=== PATIENT | female | born 1985 | race Caucasian/White ===

== ENCOUNTER 2016-12-19 11:51 | Emergency (ER) | payer OTHER ==
[2016-12-19 12:17] VITALS: BMI 23.8
[2016-12-19 12:19] VITALS: TEMP 99.4
[2016-12-19] MEDS ORDERED: Penicillin G Benzathine 1.2 Mill Unit/2 ml Syr IM ONE ×2 (12:47→13:22)
--- NOTE | 2016-12-19 12:55 | C.PDOC ---
History Of Present Illness 31 yr old female presents to the ER with complaints of fever, chill, body aches , sore throat and no appetite for the past 2 days. Patient denies chest pain, SOB, nausea, vomiting, abdominal pain, headache, weakness or numbness. Time Seen by Provider: 12/19/16 12:20 Chief Complaint (Nursing): ENT Problem History Per: Patient History/Exam Limitations: None Onset/Duration Of Symptoms: Days (2) Current Symptoms Are (Timing): Still Present Past Medical History Reviewed: Historical Data, Nursing Documentation, Vital Signs Vital Signs: Last Vital Signs Temp 99.4 F 12/19/16 13:37 Pulse 73 12/19/16 13:37 Resp 18 12/19/16 13:37 BP 98/61 L 12/19/16 13:37 Pulse Ox 98 12/19/16 13:37 - Medical History PMH: No Chronic Diseases Surgical History: Family History: States: No Known Family Hx - Social History Hx Tobacco Use: No Hx Alcohol Use: No Hx Substance Use: No Review Of Systems Except As Marked, All Systems Reviewed And Found Negative. Constitutional: Positive for: Fever (Subjective ), Chills, Other ((+) Bodyaches ) ENT: Positive for: Throat Pain (Sore throat ) Cardiovascular: Negative for: Chest Pain Respiratory: Negative for: Shortness of Breath Gastrointestinal: Negative for: Nausea, Vomiting, Abdominal Pain Neurological: Negative for: Weakness, Numbness Physical Exam - Physical Exam Appears: Well, Non-toxic, No Acute Distress Skin: Warm, Dry, No Rash Head: Atraumatic, Normacephalic Oral Mucosa: Moist Throat: Erythema, Exudate, Other ((+) Enlarged tonsils. Tender cervical nodes. ) Neck: Normal, Normal ROM, Supple Chest: Symmetrical, No Tenderness Cardiovascular: Rhythm Regular, No Murmur Respiratory: Normal Breath Sounds, No Rales, No Rhonchi, No Stridor, No Wheezing Gastrointestinal/Abdominal: Normal Exam, Soft, No Tenderness, No Guarding, No Rebound Extremity: Normal ROM, No Swelling Neurological/Psych: Oriented x3, Normal Speech, Normal Motor ED Course And Treatment O2 Sat by Pulse Oximetry: 100 Progress Note: Pt requested IM med Medical Decision Making Medical Decision Making: PLAN: Pt requested a shot not pills * Bicillin IM ordered dc home Disposition Counseled Patient/Family Regarding: Diagnosis, Need For Followup - Disposition Referrals: [facility] [Outside] Disposition: HOME/ ROUTINE Disposition Time: 13:29 Condition: GOOD Additional Instructions: Motrin or tylenol for pain / fever Instructions: Tonsillitis (ED) Forms: Work Excuse Print Language: UKRAINIAN - Clinical Impression Clinical Impression: Acute pharyngitis - Scribe Statement The provider has reviewed the documentation as recorded by the Sandy Staley Provider Attestation: All medical record entries made by the Sandy were at my direction and personally dictated by me. I have reviewed the chart and agree that the record accurately reflects my personal performance of the history, physical exam, medical decision making, and the department course for this patient. I have also personally directed, reviewed, and agree with the discharge instructions and disposition.
[2016-12-19 13:38] VITALS: BP 98/61; PULSE 73; RESP 18
[2016-12-22 16:03] VITALS: O2SAT 100
== END 2016-12-19 13:44 | disposition home or self-care (01) ==
LOC: C.ER 11:51
DX: J02.9 Acute pharyngitis, unspecified (principal)
CPT/HCPCS: 96372; 99283; J0561

== ENCOUNTER 2018-07-21 09:31 | Emergency (ER) | payer OTHER ==
[2018-07-21 09:31] VITALS: BMI 19.2
[2018-07-21 09:37] VITALS: BP 103/69; PULSE 62; RESP 16; TEMP 98.3; O2SAT 100
--- NOTE | 2018-07-21 11:08 | C.PDOC ---
History Of Present Illness 32 y/o female, otherwise well, presents to the ED complaining of pain and swelling to the right 2nd finger, worse over the past 3 days. States she accidentally caught the finger in a door 3 weeks ago and had a subungual hematoma. Patient has noticed some discharge from the distal finger. She denies any fever, chills, or increased warmth/redness to the site. Patient also complains of occasional headache. Time Seen by Provider: 07/21/18 09:54 Chief Complaint (Nursing): Upper Extremity Problem/Injury History Per: Patient History/Exam Limitations: no limitations Onset/Duration Of Symptoms: Days Current Symptoms Are (Timing): Still Present Quality: "Pain" Past Medical History Reviewed: Historical Data, Nursing Documentation, Vital Signs Vital Signs: Last Vital Signs Temp 98.3 F 07/21/18 09:35 Pulse 62 07/21/18 09:35 Resp 16 07/21/18 09:35 BP 103/69 07/21/18 09:35 Pulse Ox 100 07/21/18 09:35 Surgical History: Family History: States: No Known Family Hx - Social History Hx Tobacco Use: No Hx Alcohol Use: No Hx Substance Use: No - Immunization History Hx Tetanus Toxoid Vaccination: No Hx Influenza Vaccination: No Hx Pneumococcal Vaccination: No Review Of Systems Constitutional: Negative for: Fever, Chills Musculoskeletal: Positive for: Hand Pain (right finger pain and swelling) Skin: Negative for: Rash Neurological: Negative for: Weakness, Numbness Physical Exam - Physical Exam Appears: Well, Non-toxic, No Acute Distress Skin: Warm, Dry, Other (Right 2nd digit appears swollen, tender with a few herpetic lesions at the distal phalanx; consistent with virgilio) Head: Atraumatic, Normacephalic Eye(s): bilateral: Normal Inspection Chest: Symmetrical Respiratory: No Accessory Muscle Use, Other (speaking in full sentences) Extremity: Normal ROM, Capillary Refill (less than 2 sec) Pulses: Left Radial: Normal, Right Radial: Normal Neurological/Psych: Oriented x3, Normal Speech ED Course And Treatment O2 Sat by Pulse Oximetry: 100 (RA) Pulse Ox Interpretation: Normal Medical Decision Making Medical Decision Making: Impression: Virgilio, right 2nd digit Plan: Counseled patient regarding diagnosis and treatment plan. Patient will be discharged home, given instructions for follow up. Disposition Counseled Patient/Family Regarding: Diagnosis, Need For Followup, Rx Given - Disposition Referrals: [facility] at [facility] [Outside] Disposition: HOME/ ROUTINE Disposition Time: 11:48 Condition: STABLE Prescriptions: Acyclovir/Hydrocortisone [Xerese 5%-1% Cream] 1 cre TP TID #1 tube Cephalexin [Keflex] 500 mg PO TID #40 capsule Ibuprofen [Motrin] 600 mg PO TID #15 tab Forms: [facility] (Kittitian), Gen Discharge Inst Kittitian, Work Excuse - POA Present On Arrival: None - Clinical Impression Clinical Impression: Herpetic virgilio - Rubenibe Statement The provider has reviewed the documentation as recorded by the Sandy Kothari Provider Attestation: All medical record entries made by the Sandy were at my direction and personally dictated by me. I have reviewed the chart and agree that the record accurately reflects my personal performance of the history, physical exam, medical decision making, and the department course for this patient. I have also personally directed, reviewed, and agree with the discharge instructions and disposition.
[2018-07-21] MEDS ORDERED: Lidocaine 2% Inj (20ml) INFIL ONE (11:37)
== END 2018-07-21 12:02 | disposition home or self-care (01) ==
LOC: C.ER 09:31
DX: B00.89 Other herpesviral infection (principal)

== ENCOUNTER 2018-11-23 14:50 | Emergency (ER) | payer SELFPAY ==
[2018-11-23 16:03] VITALS: BMI 24.4
[2018-11-23 16:07] VITALS: BP 122/77; PULSE 75; TEMP 98.6; O2SAT 99
--- NOTE | 2018-11-23 18:04 | C.PDOC ---
History Of Present Illness 32 year old female presents to the ED for evaluation of generalized body aches associated with sore throat, headache and nasal congestion for one month. This morning, patient states that her eyes felt like they were shut due to crustiness this morning. She denies fever, chills. Time Seen by Provider: 11/23/18 17:10 Chief Complaint (Nursing): Cough, Cold, Congestion History Per: Patient, [employer] ([id number]) History/Exam Limitations: language barrier Onset/Duration Of Symptoms: Other (one month ) Current Symptoms Are (Timing): Still Present Location Of Pain: Diffuse Myalgias, Headache Associated Symptoms: Sore Throat, Nasal Congestion. denies: Fever, Chills Additional History Per: Patient Past Medical History Reviewed: Historical Data, Nursing Documentation, Vital Signs Vital Signs: Last Vital Signs Temp 98.6 F 11/23/18 16:01 Pulse 75 11/23/18 16:01 Resp 17 11/23/18 16:01 BP 122/77 11/23/18 16:01 Pulse Ox 99 11/23/18 16:01 - Medical History PMH: No Chronic Diseases Surgical History: Family History: States: Unknown Family Hx - Social History Hx Tobacco Use: No Hx Alcohol Use: No Hx Substance Use: No - Immunization History Hx Tetanus Toxoid Vaccination: No Hx Influenza Vaccination: No Hx Pneumococcal Vaccination: No Review Of Systems Constitutional: Negative for: Fever, Chills ENT: Positive for: Nose Congestion, Throat Pain Musculoskeletal: Positive for: Other (generalized body aches ) Neurological: Positive for: Headache Physical Exam - Physical Exam Appears: Well, Non-toxic, No Acute Distress Skin: Normal Color, Warm, Dry Head: Atraumatic, Normacephalic Eye(s): bilateral: PERRL, EOMI, Other (mild conjunctival injection, no crustiness ) Oral Mucosa: Moist Throat: No Exudate, Other (enlarged tonsils bilaterally) Neck: Supple Chest: Symmetrical, No Deformity, No Tenderness Cardiovascular: Rhythm Regular, No Murmur Respiratory: Normal Breath Sounds, No Rales, No Rhonchi, No Wheezing Extremity: Normal ROM, Capillary Refill (less than 2 seconds ) Neurological/Psych: Normal Speech, Normal Cognition ED Course And Treatment O2 Sat by Pulse Oximetry: 99 (on RA) Pulse Ox Interpretation: Normal Medical Decision Making Medical Decision Making: Plan: Will check for strep and treat for conjunctivitis and seasonal allergies Progress: Strep test ordered. Tylenol PO given. Disposition Counseled Patient/Family Regarding: Studies Performed, Diagnosis, Need For Followup, Rx Given - Disposition [facility] [Outside] Disposition: HOME/ ROUTINE Disposition Time: 18:55 Condition: GOOD Additional Instructions: Contine tomando motrin o tylenol para los rolando corporales. Hacer grgaras con agua tibia salada. Utilice Polytrim gotas en el kavya patrice se indica. Staves Claritin john vez al da. Clnica mdica de seguimiento. Contine tomando motrin o tylenol para los rolando corporales. Hacer grgaras con agua tibia salada. Utilice Polytrim gotas en el kavya patrice se indica. Staves Claritin john vez al da. Clnica mdica de seguimiento. Prescriptions: Polymyxin/Trimethoprim Sulfate [Polytrim Ophth Soln] 1 drop OU TID #1 bottle Instructions: Conjunctivitis ([place]) (DC), Viral Syndrome (DC), Upper Respiratory Infection (ED) Forms: Gen Discharge Inst Panamanian, [employer] [facility] (Panamanian) - Clinical Impression Clinical Impression: Conjunctivitis, Viral syndrome - PA / PILE DRIVING TECHNICIAN / Resident Statement MD/DO has reviewed & agrees with the documentation as recorded. - Scribe Statement The provider has reviewed the documentation as recorded by the Scribe (Kalpana Melvin) All medical record entries made by the Scribe were at my direction and personally dictated by me. I have reviewed the chart and agree that the record accurately reflects my personal performance of the history, physical exam, medical decision making, and the department course for this patient. I have also personally directed, reviewed, and agree with the discharge instructions and disposition.
[2018-11-23 19:16] VITALS: RESP 20
== END 2018-11-23 19:15 | disposition home or self-care (01) ==
LOC: C.ER 14:50
DX: B34.9 Viral infection, unspecified (principal); H10.9 Unspecified conjunctivitis